=== PATIENT | female | born 1970 | race Caucasian/White ===

== ENCOUNTER 2016-11-17 09:44 | Day surgery (SDC) | payer MEDICAID, SELFPAY ==
[~2016-11-17 09:44] MED LIST: ARIMIDEX1 M1 PO; CELEXA20 M2 PO; IBUPROFEN200 M2 PO; IRON325 M3 PO; LUPRON DEPOT30 MG IM; PRINIVIL10 M1 PO; VITAMIN D31000 UNI3 PO
[2016-11-17 12:04] LABS: ANION GAP 13 mmol/L (0-20); BLOOD UREA NITROGEN 25 mg/dl (6-24); CALCIUM 9.3 mg/dl (8.5-10.5); CARBON DIOXIDE-VENOUS 28 mmol/L (22-32); CHLORIDE 103 mmol/l (96-110); CREATININE 1.33 mg/dl (0.50-1.10); GLUCOSE 105 mg/dL (70-110); POTASSIUM 4.5 mmol/L (3.7-5.1); SODIUM 139 mmol/L (135-145); eGFR VALUE FOR BLACK 55 mL/Min
[2016-11-17 13:15] LABS: BASO % 0.5 % (0-2); BASO ABSOLUTE COUNT 0.1 tho/cmm (0.0-0.2); EOS % 1.8 % (0-7); EOSINOPHIL ABSOLUTE COUNT 0.2 tho/cmm (0.0-0.7); HCT-HEMATOCRIT 34.5 % (34.0-49.0); HGB-HEMOGLOBIN 10.1 gm/dl (12.0-15.5); MCH (MEAN CORPUSCULAR HGB) 21.4 pg (28.0-32.0); MCHC MEAN CORPUSCULAR HGB CONC 29.3 % (32.0-36.0); MCV (MEAN CELL VOLUME) 73.1 fl (82.0-96.0); MEAN PLATELET VOLUME 11.2 cmc (9.4-12.4); MONO % 8.4 % (0-12); NEUTROPHIL ABSOLUTE COUNT 9.6 tho/cmm (1.6-8.0); NEUTROPHIL-AUTOMATED 9.6 tho/cmm (1.6-8.0); NEUTROPHILS % 81.3 % (40-80); PLATELET COUNT 332 tho/cmm (150-450); RED BLOOD COUNT 4.72 mil/cmm (4.00-5.20); RED CELL DISTRIBUTION WIDTH 20.1 % (12.4-16.4); WHITE BLOOD COUNT 11.8 tho/cmm (4.0-10.0)
[2016-11-18] MEDS ORDERED: NORCO 5-325 TA1 EACH PO (10:50)
[2016-11-18] MEDS ORDERED: COLACE100 M1 PO (10:52)
[2016-11-18] MEDS ORDERED: NORMAL SALINE FL2 ML TP (10:54)
== END 2016-11-18 12:58 ==
LOC: SHSB 09:44 → ORW 12:06 → BURN 13:26
PROVIDERS: Surgery
PROC: 0JB80ZZ Excision of Abdomen Subcutaneous Tissue and Fascia, Open Approach (ICD-10-PCS; principal; 2016-11-17)
DX: I96 Gangrene, not elsewhere classified (principal); I10 Essential (primary) hypertension; E66.01 Morbid (severe) obesity due to excess calories; F41.9 Anxiety disorder, unspecified; F32.9 Major depressive disorder, single episode, unspecified; Z79.899 Other long term (current) drug therapy; Z85.42 Personal history of malignant neoplasm of other parts of uterus; Z98.890 Other specified postprocedural states
CPT/HCPCS: J0171; J0690; J1170; J7999